=== PATIENT | male | born 1985 | race Caucasian/White ===

== ENCOUNTER 2019-02-08 13:00 | Emergency (ER) | payer MEDICAID ==
[~2019-02-08] VITALS: Ht 188 cm; Wt 88.5 kg
[2019-02-08 13:06] VITALS: BP 125/68
[2019-02-08] MEDS ORDERED: FLUORESCEIN SODIUM OPHTH 1 EA STRIP ONE (13:10)
[2019-02-08] MEDS ORDERED: TETRACAINE HCL/PF 0.5% UD 2 ML BOTTLE ONE (13:10)
[2019-02-08] MEDS ORDERED: FLUORESCEIN SODIUM OPHTH 1 EA STRIP OP ONE (13:30)
[2019-02-08] MEDS ORDERED: TETRACAINE HCL/PF 0.5% UD 2 ML BOTTLE LEFTEYE ONE (13:30)
[2019-02-08] MEDS ORDERED: ERYTHROMYCIN BASE OPHTH 3.5 GM TUBE ONE (13:36)
[2019-02-08] MEDS ORDERED: ERYTHROMYCIN BASE OPHTH 3.5 GM TUBE OP ONE (14:00)
== END 2019-02-08 14:19 | disposition home or self-care (01) ==
LOC: ER 13:02
DX: T15.92XA Foreign body on external eye, part unspecified, left eye, initial encounter (principal); F17.200 Nicotine dependence, unspecified, uncomplicated; W22.8XXA Striking against or struck by other objects, initial encounter; Y93.89 Activity, other specified; Y92.89 Other specified places as the place of occurrence of the external cause; Y99.8 Other external cause status

== ENCOUNTER 2019-05-01 02:56 | Emergency (ER) | payer MEDICAID, OTHER ==
[~2019-05-01] VITALS: Ht 188 cm; Wt 93.0 kg
[2019-05-01 03:10] VITALS: BP 108/72
[2019-05-01] MEDS ORDERED: CLINDAMYCIN HCL 150 MG CAPSULE PO ONE ×2 (03:30)
== END 2019-05-01 03:58 | disposition home or self-care (01) ==
LOC: ER 02:56
DX: L97.911 Non-pressure chronic ulcer of unspecified part of right lower leg limited to breakdown of skin (principal); F15.10 Other stimulant abuse, uncomplicated; F17.200 Nicotine dependence, unspecified, uncomplicated

== ENCOUNTER 2019-12-07 19:28 | Emergency (ER) | payer OTHER ==
[~2019-12-07] VITALS: Ht 188 cm; Wt 90.7 kg
--- NOTE | 2019-12-07 19:51 | NUR ---
BIBS W/ MOTHER FROM HOME TP ER BED 7. AAOX4. NOT IN RESP DISTRESS. AMBULATORY. 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 NOTED 3 LACERATION SITE. #1 LATERAL LEFT PALM 6CM LONG UNAPPROXIMATED BLEEDING. #2 L HAND PALM 2 CM LONG UNAPPROXIMATED BLEEDING. #3 L HAND PALM Y SHAPE 3 CM LONG UNAPPROXIMATED BLEEDING. EMT AT BEDSIDE FOR WOUND CLEANING. ALENA HANKS AT BEDSIDE FOR EVAL.
[2019-12-07] MEDS ORDERED: LIDOCAINE 1% INJ 50 ML MDV IJ ONE (20:07)
[2019-12-07] MEDS ORDERED: LIDOCAINE 1%-EPI 1:100,000 20 ML VIAL ONE (20:13)
--- NOTE | 2019-12-07 22:17 | NUR ---
ALENA HANKS AT BEDSIDE FOR SUTURE
--- NOTE | 2019-12-07 22:45 | NUR ---
EMT AT BEDSIDE FOR WOUND DRESSING. NON ADHERENT DRESSING WRAPPED WITH KERLIX.
[2019-12-07] MEDS ORDERED: CEPHALEXIN MONOHYDRATE 500 MG CAPSULE PO ONE ×2 (23:00)
[2019-12-07 23:13] VITALS: BP 121/80
--- NOTE | 2019-12-07 23:13 | NUR ---
Patient discharged to home in stable condition. Written and verbal after care instructions given. Patient verbalizes understanding of instruction. Pt ambulatory with a steady gait
== END 2019-12-07 23:13 | disposition home or self-care (01) ==
LOC: ER 19:31
DX: S61.412A Laceration without foreign body of left hand, initial encounter (principal); F17.200 Nicotine dependence, unspecified, uncomplicated; W22.8XXA Striking against or struck by other objects, initial encounter; Y93.89 Activity, other specified; Y92.89 Other specified places as the place of occurrence of the external cause; Y99.8 Other external cause status
CPT/HCPCS: 12044; 73130; 99284; A6403; J3490

== ENCOUNTER 2019-12-09 02:17 | Emergency (ER) | payer OTHER ==
[~2019-12-09] VITALS: Ht 188 cm; Wt 90.7 kg
[2019-12-09 02:20] VITALS: BP 139/85
[2019-12-09] MEDS ORDERED: CEFTRIAXONE 1 G VIAL ONE (02:24)
[2019-12-09] MEDS ORDERED: CEFTRIAXONE 1 G VIAL IM ONE (02:30)
== END 2019-12-09 02:33 | disposition home or self-care (01) ==
LOC: ER 02:18
DX: S61.412A Laceration without foreign body of left hand, initial encounter (principal); F17.210 Nicotine dependence, cigarettes, uncomplicated; X58.XXXA Exposure to other specified factors, initial encounter; Y93.89 Activity, other specified; Y92.89 Other specified places as the place of occurrence of the external cause; Y99.8 Other external cause status
CPT/HCPCS: 96372; 99283; 99406; J0696

== ENCOUNTER 2019-12-16 14:56 | Emergency (ER) | payer OTHER ==
[~2019-12-16] VITALS: Ht 185.4 cm; Wt 75.7 kg
[2019-12-16 15:01] VITALS: BP 134/87
--- NOTE | 2019-12-16 15:09 | NUR ---
AT BEDSIDE FOR EVAL.
--- NOTE | 2019-12-16 15:36 | NUR ---
Patient discharged to home in stable condition. Written and verbal after care instructions given. Patient verbalizes understanding of instruction.
== END 2019-12-16 15:38 | disposition home or self-care (01) ==
LOC: ER 14:56
DX: S61.412D Laceration without foreign body of left hand, subsequent encounter (principal); X58.XXXD Exposure to other specified factors, subsequent encounter